=== PATIENT | male | born 1970 | race African-American/Black ===

== ENCOUNTER 2016-10-10 01:59 | Emergency (ER) | payer OTHER ==
[~2016-10-10] VITALS: Ht 172.7 cm; Wt 72.7 kg
[~2016-10-10 01:59] MED LIST: FLEXERIL10 MG PO; FOLIC ACID1 MG PO; HYDROCODON-ACE1 EAC7 PO; MOBIC7.5 MG PO; NAPROSYN500 MG PO; NAPROXEN500 MG PO; NORCO 5/3251 TABLET PO; PERCOCET 5/31 TABLET PO; PREDNISONE10 MG PO; PREDNISONE20 MG PO; Thiamine,Vitamin B1 PO; ULTRAM50 MG PO; VITAMIN B-1100 MG PO; ZOFRAN4 MG PO
[2016-10-10 07:52] LABS: HEMATOCRIT 38.3 % (38.0-50.0); MCH 29.9 PG (29.0-34.0); MCHC 33.9 G/DL (30.0-36.0); MEAN PLAT.VOLUME 9.9 uM^3 (9.0-12.4); PLATELET COUNT 293 K/uL (156-360); RBC DIS.WIDTH-CV 14.2 % (11.8-14.6); RBC DIS.WIDTH-SD 45.6 % (39-53); RED BLOOD COUNT 4.35 M/uL (4.00-5.50)
[2016-10-10 08:03] LABS: CHLORIDE 103 mEq/L (99-109); POTASSIUM 4.3 mEq/L (3.7-5.4); SODIUM 136 mEq/L (136-147)
[2016-10-10 08:05] LABS: GLUCOSE 87 mg/dL (70-99)
[2016-10-10 08:06] LABS: ANION GAP 9 MEQ/L (2-14)
[2016-10-10 08:08] LABS: SERUM ETHYL ALCOHOL < 10 mg/dL
[2016-10-10 08:09] LABS: GFR ESTIMATE (CALCULATED) > 59 mL/min/
[2016-10-10 08:10] LABS: UREA NITROGEN (BUN) 13 mg/dL (9-23)
[2016-10-10] MEDS ORDERED: NORCO 5/3251 TABLET PO (08:11)
[2016-10-10 08:51] VITALS: BP 131/83
== END 2016-10-10 09:11 | disposition home or self-care (01) ==
LOC: EME 01:59
PROVIDERS: Emergency Medicine
DX: S02.32XA Fracture of orbital floor, left side, initial encounter for closed fracture (principal); S02.82XA Fracture of other specified skull and facial bones, left side, initial encounter for closed fracture; S02.642A Fracture of ramus of left mandible, initial encounter for closed fracture; S00.81XA Abrasion of other part of head, initial encounter; Y04.8XXA Assault by other bodily force, initial encounter; F17.200 Nicotine dependence, unspecified, uncomplicated; J45.909 Unspecified asthma, uncomplicated
CPT/HCPCS: 70150; 70450; 70486; 71020; 80048; 85027; 99281; 99283; G0480

== ENCOUNTER 2017-02-23 19:56 | Emergency (ER) | payer OTHER ==
[~2017-02-23] VITALS: Ht 170.2 cm; Wt 58.4 kg
[2017-02-23 21:18] LABS: HEMATOCRIT 39.1 % (38.0-50.0); MCH 29.6 PG (29.0-34.0); MCHC 33.5 G/DL (30.0-36.0); MCV 88.5 FL (86-99); MEAN PLAT.VOLUME 10.2 uM^3 (9.0-12.4); PLATELET COUNT 218 K/uL (156-360); RBC DIS.WIDTH-CV 13.2 % (11.8-14.6); RBC DIS.WIDTH-SD 43.1 % (39-53); RED BLOOD COUNT 4.42 M/uL (4.00-5.50); WHITE BLOOD COUNT 4.5 K/uL (4.1-10.2)
[2017-02-23 21:27] LABS: CHLORIDE 104 mEq/L (99-109); POTASSIUM 3.8 mEq/L (3.7-5.4); SODIUM 136 mEq/L (136-147)
[2017-02-23 21:30] LABS: GLUCOSE 86 mg/dL (70-99)
[2017-02-23 21:31] LABS: ANION GAP 11 MEQ/L (2-14)
[2017-02-23 21:32] LABS: TOTAL BILIRUBIN 0.2 mg/dL (0.0-1.0)
[2017-02-23 21:33] LABS: ALKALINE PHOSPHATASE 81 IU/L (3-129)
[2017-02-23 21:34] LABS: ADD MIUA? NO; BILIRUBIN NEGATIVE; BLOOD NEGATIVE; COLOR STRAW ((YELLOW)); GLUCOSE (STRIP) NEGATIVE; KETONES NEGATIVE; LEUKOCYTES NEGATIVE; NITRITE NEGATIVE; PROTEIN (STRIP) NEGATIVE; SPECIFIC GRAVITY 1.005 (1.000-1.030); UCUL ADDED? NO; UROBILINOGEN 0.2 MG/DL (0.2-1.0)
[2017-02-23 21:34] LABS: GFR ESTIMATE (CALCULATED) > 59 mL/min/
[2017-02-23 21:35] LABS: UREA NITROGEN (BUN) 8 mg/dL (9-23)
[2017-02-23 21:37] LABS: LIPASE 341 U/L (1.0-51.0)
[2017-02-23] MEDS ORDERED: ADVIL200 MG PO (23:23)
[2017-02-24] MEDS ORDERED: PERCOCET 5/31 TABLET PO (00:46)
[2017-02-24] MEDS ORDERED: ZOFRAN4 MG PO (00:46)
[2017-02-24 01:07] VITALS: BP 130/92
== END 2017-02-24 01:11 | disposition home or self-care (01) ==
LOC: EME 19:56
DX: K86.1 Other chronic pancreatitis (principal); S00.83XA Contusion of other part of head, initial encounter; Y09 Assault by unspecified means; R19.7 Diarrhea, unspecified; F10.20 Alcohol dependence, uncomplicated; F17.200 Nicotine dependence, unspecified, uncomplicated
CPT/HCPCS: 70150; 74177; 80053; 81003; 83690; 85027; 99281; 99284; J2270; J2405; J3010; J7030

== ENCOUNTER 2017-07-23 09:02 | Emergency (ER) | payer OTHER ==
[~2017-07-23] VITALS: Ht 170.2 cm; Wt 61.1 kg
[~2017-07-23 09:02] MED LIST changes: +ADVIL200 MG PO; +ERYTHROMYC1 APPLICAT RIGHT EYE
[2017-07-23] MEDS ORDERED: ULTRAM50 MG PO (11:10)
[2017-07-23] MEDS ORDERED: NEURONTIN600 MG PO (11:13)
[2017-07-23 11:35] VITALS: BP 172/80
== END 2017-07-23 11:38 | disposition home or self-care (01) ==
LOC: EME 09:02
DX: S93.401A Sprain of unspecified ligament of right ankle, initial encounter (principal); X58.XXXA Exposure to other specified factors, initial encounter; Z72.0 Tobacco use
CPT/HCPCS: 73610; 99281; 99283

== ENCOUNTER 2017-08-06 16:48 | Emergency (ER) | payer OTHER ==
[~2017-08-06] VITALS: Ht 170.2 cm; Wt 61.1 kg
[~2017-08-06 16:48] MED LIST changes: +NEURONTIN600 MG PO
[2017-08-06] MEDS ORDERED: ULTRAM50 MG PO (18:30)
[2017-08-06 18:51] VITALS: BP 115/87
== END 2017-08-06 18:53 | disposition home or self-care (01) ==
LOC: EME 16:48
DX: J10.1 Influenza due to other identified influenza virus with other respiratory manifestations (principal); Z72.0 Tobacco use
CPT/HCPCS: 71046; 87502; 99281; 99284; J1885